=== PATIENT | female | born 1970 | race American Indian/Alaskan Native ===

== ENCOUNTER 2019-05-31 09:03 | Emergency (ER) | payer OTHER ==
[2019-05-31] MEDS ORDERED: ULTRAM PO ONE (09:46)
[2019-05-31] MEDS ORDERED: IBUPROFEN PO ONE (09:46)
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
== END 2019-05-31 12:17 | disposition home or self-care (01) ==
LOC: ED 09:03
DX: S63.616A Unspecified sprain of right little finger, initial encounter (principal); S16.1XXA Strain of muscle, fascia and tendon at neck level, initial encounter; S80.11XA Contusion of right lower leg, initial encounter; F17.200 Nicotine dependence, unspecified, uncomplicated; Z79.899 Other long term (current) drug therapy; V49.59XA Passenger injured in collision with other motor vehicles in traffic accident, initial encounter; Y93.89 Activity, other specified; Y92.488 Other paved roadways as the place of occurrence of the external cause; Y99.8 Other external cause status
CPT/HCPCS: 72040